=== PATIENT | female | born 1995 | race Caucasian/White ===

== ENCOUNTER 2017-01-22 21:18 | Emergency (ER) | payer MEDICAID ==
[2017-01-22 21:33] VITALS: RESP 16
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
[2017-01-22 23:21] VITALS: O2SAT 97
[2017-01-23 02:44] VITALS: BP 104/68; PULSE 80; TEMP 97.9
== END 2017-01-23 02:06 | disposition home or self-care (01) ==
DX: S09.90XA Unspecified injury of head, initial encounter (principal); S16.1XXA Strain of muscle, fascia and tendon at neck level, initial encounter; F19.10 Other psychoactive substance abuse, uncomplicated; F10.120 Alcohol abuse with intoxication, uncomplicated; J45.909 Unspecified asthma, uncomplicated; F17.200 Nicotine dependence, unspecified, uncomplicated; W01.198A Fall on same level from slipping, tripping and stumbling with subsequent striking against other object, initial encounter; Y92.410 Unspecified street and highway as the place of occurrence of the external cause

== ENCOUNTER 2017-03-07 01:01 | Emergency (ER) | payer OTHER, MEDICAID ==
[2017-03-07] MEDS ORDERED: OLANZapine 10 MG/2 ML VIAL IM ONE ×2 (01:05→01:16)
[2017-03-07] MEDS ORDERED: LORazepam 2 MG/ML INJ ONE (01:05)
[2017-03-07] MEDS ORDERED: LORazepam 2 MG/ML INJ IM ONE (01:15)
--- NOTE | 2017-03-07 02:14 | EDPHY ---
H & P Stated Complaint: MADE SI STATEMENT WHILE BEING TAKKEN TO THE [facility], - Personal History LMP (Females 10-55): Now Current Tetanus/Diphtheria Vaccine: Yes Current Tetanus Diphtheria and Acellular Pertussis (TDAP): Yes - Medical/Surgical History Hx Asthma: Yes Hx Chronic Respiratory Disease: No Hx Diabetes: No Hx Cardiac Disease: No Hx Renal Disease: No Hx Cirrhosis: No Hx Alcoholism: No Hx HIV/AIDS: No Hx Splenectomy or Spleen Trauma: No Other PMH: hx concussions, hx exercise induced asthma - Social History Smoking Status: Heavy smoker Time Seen by Provider: 03/07/17 01:07 HPI/ROS: Chief Complaint: Alcohol intoxication, suicidal ideation HPI: 21-year-old female who was involved in an argument with her partner this morning. Patient has been drinking. EMS was called and in the process of taking the [facility] when she started banging her head against a window and making suicidal statements. Patient was placed on a mental health hold by police. She admits to drinking alcohol. Denies any other ingestions. Has a history of similar presentations in the past. Currently is uncooperative and refusing to answer any other questions. The patient is insulting and profane. Antagonistic with staff. Review of systems is unobtainable secondary to the patient's lack of cooperation PMH: Patient denies Social History: positive alcohol Family History: non-contributory Physical Exam: Gen: Awake, Alert, insulting and profane, smells heavily of alcohol HEENT: Nose: no rhinorrhea Eyes: PERRLA, EOMI Mouth: Moist mucosa Neck: Supple, no JVD Chest: nontender, lungs clear to auscultation Heart: S1, S2 normal, no murmur Abd: Soft, non-tender, no guarding Back: no CVA tenderness, no midline tenderness Ext: no edema, non-tender Skin: no rash Neuro: CN II-XII intact, Sensation grossly intact, Strength 5/5 in bilateral upper and lower extremities (Ruben Jo) Constitutional: Initial Vital Signs Temperature (C) 36.6 C 03/07/17 01:05 Heart Rate 106 H 03/07/17 01:05 Respiratory Rate 20 03/07/17 01:05 Blood Pressure 107/88 H 03/07/17 01:05 O2 Sat (%) 99 03/07/17 01:05 O2 Delivery Mode Room Air O2 (L/minute) 3 Allergies/Adverse Reactions: No Known Allergies Allergy (Unverified 03/07/17 01:19) Home Medications: Medication Instructions Recorded Nexplanon 01/22/17 ALPRAZolam [Xanax 0.5 MG (*)] 0.5 mg PO TID 03/07/17 Medical Decision Making ED Course/Re-evaluation: Patient is agitated and combative. She is given Zyprexa and Ativan IM here. Will allow her to metabolize her alcohol and reassess her mental status when she is sober. [address] Key pending adequate metabolism of her alcohol and re-assessment. (Ruben Jo) Other Provider: Care assumed at 6:45 a.m. with plan for reassessment when clinically sober. 910: Patient alert and ambulatory and has no medical complaints. Clinically sober, ambulatory, not ataxic. Personally evaluated by myself at this time. She denies intent to hurt herself or any suicidal ideation at this time. She does have a history of cutting on her left forearm and on exam has multiple healed superficial lacerations or abrasions there but nothing new. At this time patient does not appear to be a danger to herself or others. She is currently going to summer school and wants to leave so she can get on with her life and studying. At this time the mental health hold is lifted by myself. (Luis Alberto Key) - Data Points Laboratory Results: Laboratory Results 03/07/17 07:45 03/07/17 07:45 03/07/17 03/07/17 03/07/17 07:45 07:45 07:45 WBC 5.18 10^3/uL 10^3/uL (3.80-9.50) RBC 4.61 10^6/uL 10^6/uL (4.18-5.33) Hgb 15.0 g/dL g/dL (12.6-16.3) Hct 42.7 % % (38.0-47.0) MCV 92.6 fL fL (81.5-99.8) MCH 32.5 pg pg (27.9-34.1) MCHC 35.1 g/dL g/dL (32.4-36.7) RDW 13.4 % % (11.5-15.2) Plt Count 214 10^3/uL 10^3/uL (150-400) MPV 9.6 fL fL (8.7-11.7) Neut % (Auto) 35.5 % L % (39.3-74.2) Lymph % (Auto) 52.5 % H % (15.0-45.0) [place] % (Auto) 8.3 % % (4.5-13.0) Eos % (Auto) 2.7 % % (0.6-7.6) Baso % (Auto) 0.8 % % (0.3-1.7) Nucleat RBC Rel Count 0.0 % % (0.0-0.2) Absolute Neuts (auto) 1.84 10^3/uL 10^3/uL (1.70-6.50) Absolute Lymphs (auto) 2.72 10^3/uL 10^3/uL (1.00-3.00) Absolute Monos (auto) 0.43 10^3/uL 10^3/uL (0.30-0.80) Absolute Eos (auto) 0.14 10^3/uL 10^3/uL (0.03-0.40) Absolute Basos (auto) 0.04 10^3/uL 10^3/uL (0.02-0.10) Absolute Nucleated RBC 0.00 10^3/uL 10^3/uL (0-0.01) Immature Gran % 0.2 % % (0.0-1.1) Immature Gran # 0.01 10^3/uL 10^3/uL (0.00-0.10) Sodium 150 mEq/L H mEq/L (134-144) Potassium 4.1 mEq/L mEq/L (3.5-5.2) Chloride 113 mEq/L H mEq/L (97-110) Carbon Dioxide 23 mEq/l mEq/l (22-31) Anion Gap 14 mEq/L mEq/L (8-16) BUN 10 mg/dL mg/dL (7-23) Creatinine 0.6 mg/dL mg/dL (0.6-1.0) Estimated GFR > 60 Glucose 70 mg/dL mg/dL (70-100) Calcium 9.3 mg/dL mg/dL (8.5-10.4) Beta HCG, Qual NEGATIVE Acetaminophen < 10 mcg/mL L mcg/mL (10.0-30.0) Medications Given: Discontinued Medications Lorazepam (Ativan Injection) 2 mg IM EDNOW ONE Stop: 03/07/17 01:16 Last Admin: 03/07/17 01:10 Dose: 2 mg Olanzapine (Zyprexa Im Injection) 5 mg IM EDNOW ONE Stop: 03/07/17 01:17 Last Admin: 03/07/17 01:10 Dose: 5 mg Departure - Departure Disposition: Home, Routine, Self-Care Clinical Impression: Alcohol intoxication Qualifiers: Complication of substance-induced condition: uncomplicated Qualified Code(s): F10.920 - Alcohol use, unspecified with intoxication, uncomplicated Condition: Good Instructions: Alcohol Intoxication (ED) Referrals: YOLANDA CAPONE [Other] - As per Instructions
[2017-03-07 07:56] LABS: % IMMATURE GRANULYOCYTES 0.2 % (0.0-1.1); ABSOLUTE IMMATURE GRANULOCYTES 0.01 10^3/uL (0.00-0.10); ADD DIFF? NO; ADD MORPH? NO; ADD SCAN? NO; ATYPICAL LYMPHOCYTE FLAG 20 (0-99); FRAGMENT RBC FLAG 0 (0-99); HEMATOCRIT 42.7 % (38.0-47.0); LEFT SHIFT FLG 0 (0-99); LIPEMIA HEMOLYSIS FLAG 90 (0-99); MEAN CELL HEMOGLOBIN 32.5 pg (27.9-34.1); MEAN CELL HEMOGLOBIN CONCENTR. 35.1 g/dL (32.4-36.7); MEAN CELL VOLUME 92.6 fL (81.5-99.8); MEAN PLATELET VOLUME 9.6 fL (8.7-11.7); PLATELET CLUMPS FLAG 0 (0-99); PLATELET COUNT 214 10^3/uL (150-400); RED BLOOD CELL COUNT 4.61 10^6/uL (4.18-5.33); RED CELL DISTRIBUTION WIDTH 13.4 % (11.5-15.2)
[2017-03-07 08:04] VITALS: BP 114/65; PULSE 75; RESP 14; TEMP 98.1; O2SAT 92
[2017-03-07 08:26] LABS: ANION GAP 14 mEq/L (8-16); CALCIUM 9.3 mg/dL (8.5-10.4); CARBON DIOXIDE 23 mEq/l (22-31); CHLORIDE 113 mEq/L (97-110); CREATININE 0.6 mg/dL (0.6-1.0); GLOMERULAR FILTRATION RATE > 60; GLUCOSE 70 mg/dL (70-100); POTASSIUM 4.1 mEq/L (3.5-5.2); SODIUM 150 mEq/L (134-144)
== END 2017-03-07 09:42 | disposition home or self-care (01) ==
LOC: EDUNIT#
DX: F10.120 Alcohol abuse with intoxication, uncomplicated (principal); J45.909 Unspecified asthma, uncomplicated; F17.200 Nicotine dependence, unspecified, uncomplicated
CPT/HCPCS: G0480; J2060

== ENCOUNTER 2017-10-02 00:08 | Emergency (ER) | payer OTHER, MEDICAID ==
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
[2017-10-02 01:54] LABS: PLATELET COUNT 278 10^3/uL (150-400)
[2017-10-02 09:12] VITALS: RESP 18; TEMP 97.5
[2017-10-02 16:44] VITALS: BP 129/69; PULSE 58; O2SAT 95
== END 2017-10-02 19:24 | disposition home or self-care (01) ==
LOC: EDUNIT#
PROC: 0HQEXZZ Repair Left Lower Arm Skin, External Approach (ICD-10-PCS; principal; 2017-10-02)
DX: S61.512A Laceration without foreign body of left wrist, initial encounter (principal); F10.920 Alcohol use, unspecified with intoxication, uncomplicated; F43.21 Adjustment disorder with depressed mood; F17.200 Nicotine dependence, unspecified, uncomplicated; X78.1XXA Intentional self-harm by knife, initial encounter; Y93.89 Activity, other specified
CPT/HCPCS: 80305; G0480

== ENCOUNTER 2018-02-24 02:13 | Emergency (ER) | payer MEDICAID, OTHER ==
--- NOTE | 2018-02-24 02:19 | EDPHY ---
H & P Stated Complaint: SI Source: Patient, EMS Exam Limitations: Intoxication - Medical/Surgical History Hx Asthma: No Hx Chronic Respiratory Disease: No Hx Diabetes: No Hx Cardiac Disease: No Hx Renal Disease: No Hx Cirrhosis: No Hx Alcoholism: No Hx HIV/AIDS: No Hx Splenectomy or Spleen Trauma: No Other PMH: hx concussions, hx exercise induced asthma, depression - Social History Smoking Status: Heavy smoker Time Seen by Provider: 02/24/18 02:15 HPI/ROS: HPI The patient presents with suicidal ideation and attempt with cutting with a knife, she is brought in by ambulance and police on a on M1 hold. The patient has been drinking alcohol throughout the evening and then cut herself on her neck and abdomen in an effort to end her life. Police were called to an apartment complex, she was there with her partner. She did admit to harming herself and stated that she was feeling suicidal. She did admit to drinking several alcoholic drinks throughout the night, she denies any other drug use. She received Versed 5 mg IM by paramedics because she was extremely combative, kicking and screaming. On review of records, she has been in the emergency department in September of 2017 for a suicide attempt in the setting of alcohol intoxication. She was not admitted to a psychiatric facility at the time.. REVIEW OF SYSTEMS Constitutional: No fever, no chills. Eyes: No discharge. ENT: No sore throat. Cardiovascular: No chest pain, no palpitations. Respiratory: No cough, no shortness of breath. Gastrointestinal: No abdominal pain, no vomiting. Genitourinary: No hematuria. Musculoskeletal: No back pain. Skin: No rashes. Neurological: No headache. PMHx: History of depression Soc Hx: Alcohol abuse PHYSICAL General Appearance: Alert, yelling, appears intoxicated Eyes: Pupils equal and round no pallor or injection ENT, Mouth: Mucous membranes moist Respiratory: There are no retractions, lungs are clear to auscultation Cardiovascular: Tachycardic rate and regular rhythm Gastrointestinal: Abdomen is soft and non-tender, no masses, bowel sounds normal Neurological: A&O, moves all extremities Skin: Warm and dry, right neck with multiple superficial lacerations, abdomen with multiple lacerations Musculoskeletal: Neck is supple non tender Extremities: symmetrical, full range of motion Psychiatric: Patient is oriented X 3, there is mild agitation (Riguzzi,June) Constitutional: Initial Vital Signs Temperature (C) 36.6 C 02/24/18 02:31 Heart Rate 82 02/24/18 02:31 Respiratory Rate 16 02/24/18 02:31 Blood Pressure 132/63 H 02/24/18 02:31 O2 Sat (%) 97 02/24/18 02:31 O2 Delivery Mode Room Air Allergies/Adverse Reactions: No Known Allergies Allergy (Verified 10/02/17 00:51) Home Medications: Medication Instructions Recorded Nexplanon 01/22/17 ALPRAZolam [Xanax 0.5 MG (*)] 0.5 mg PO TID 03/07/17 Medical Decision Making ED Course/Re-evaluation: I assumed care of this patient at 7:[address] Lechuga. At this point we are awaiting sobriety as well as medication clearance. Patient had received Versed and Haldol secondary to have significant agitation. 4:00 p.m.: Patient has sobered and cleared her medications and is currently undergoing evaluation by [facility]. Patinent no longer meeting criteria for M1 hold. Contracts for safety. 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 Resource information provided. (Bessie Hunter) Differential Diagnosis: 22-year-old female with history of depression, prior suicide attempt, alcohol abuse presents brought in by ambulance on M1 hold for suicidal ideation in the setting of alcohol intoxication. She has cut her neck and abdomen and arm in several places. These are all superficial and will not require repair. On arrival to the emergency department I met the paramedics at the bedside and obtained their report. Patient is still significantly agitated so we have given her another dose of Versed 5 mg IM. After about 20 min, patient was still agitated and received Haldol 5 mg IM with good result and was able to rest. Differential diagnosis includes alcohol intoxication, depression with suicidal ideation, polysubstance abuse. 6:30 a.m.- The patient has been stable over the last several hours. She is sedate, likely with the result of her alcohol intoxication and the medication she received here for her agitation. Her alcohol level was quite elevated in the 300s. She will need to sober more before she can complete a psychiatric evaluation. The case will be signed out at change of shift to the oncoming provider Dr. Hunter. (June Lechuga) - Data Points Laboratory Results: Laboratory Results 02/24/18 03:08 02/24/18 03:08 Medications Given: Discontinued Medications Haloperidol Lactate (Haldol Injection) 5 mg IM EDNOW ONE Stop: 02/24/18 02:43 Last Admin: 02/24/18 02:43 Dose: 5 mg Midazolam HCl (Versed) 5 mg IM EDNOW ONE Stop: 02/24/18 02:42 Last Admin: 02/24/18 02:49 Dose: 5 mg Departure - Departure Disposition: Home, Routine, Self-Care Clinical Impression: Suicidal ideation, Self-inflicted injury Alcohol intoxication Qualifiers: Complication of substance-induced condition: with delirium Qualified Code(s): F10.921 - Alcohol use, unspecified with intoxication delirium Condition: Good Instructions: Depression (ED), Suicide Prevention (ED) Additional Instructions: Please follow up at [facility] for further evaluation and consideration of treatment for your depression. Please return to the emergency department or seek care urgently at any point if you are feeling worse, or more suicidal. Stop drinking alcohol in excessive quantities. Referrals: Patient,NotPresent [Primary Care Provider] - As per Instructions [facility] [Clinic] - As per Instructions
[2018-02-24] MEDS ORDERED: MIDAZOLAM 10 MG/2 ML VIAL ONE (02:22)
[2018-02-24] MEDS ORDERED: HALOPERIDOL LACT 5 MG/ML INJ ONE (02:40)
[2018-02-24] MEDS ORDERED: MIDAZOLAM 10 MG/2 ML VIAL IM ONE (02:41)
[2018-02-24] MEDS ORDERED: HALOPERIDOL LACT 5 MG/ML INJ IM ONE (02:42)
[2018-02-24 03:17] LABS: PLATELET COUNT 266 10^3/uL (150-400)
[2018-02-24 16:34] VITALS: BP 120/80
== END 2018-02-24 16:35 | disposition home or self-care (01) ==
DX: S11.91XA Laceration without foreign body of unspecified part of neck, initial encounter (principal); S31.119A Laceration without foreign body of abdominal wall, unspecified quadrant without penetration into peritoneal cavity, initial encounter; F17.200 Nicotine dependence, unspecified, uncomplicated; F10.921 Alcohol use, unspecified with intoxication delirium; X78.1XXA Intentional self-harm by knife, initial encounter; Y99.8 Other external cause status; Y93.89 Activity, other specified
CPT/HCPCS: 80305; G0480; J1630; J2250